=== PATIENT | male | born 1950 | race Caucasian/White ===

== ENCOUNTER 2017-04-03 12:49 | Inpatient (IN) | payer OTHER ==
[~2017-04-03] VITALS: Ht 177.8 cm; Wt 97.5 kg
[2017-04-03 12:51] VITALS: BP 136/73
[2017-04-03] MEDS ORDERED: COUMADIN 5 MG TA5 M1 PO (13:37)
[2017-04-03] MEDS ORDERED: UNICOMPLEX M TA1 TA1 PO (13:37)
[2017-04-03 13:38] LABS: URINE BILIRUBIN NEGATIVE (Negative); URINE BLOOD 3+ (Negative); URINE COLOR YELLOW; URINE GLUCOSE-RANDOM* NEGATIVE (Negative); URINE KETONES NEGATIVE (Negative); URINE LEUKOCYTES-REFLEX NEGATIVE (Negative); URINE PROTEIN (DIPSTICK) 1+ (Negative); URINE SPECIFIC GRAVITY 1.025 (1.003-1.035); URINE UROBILINOGEN 0.2 E.U./dl (0.2-1.0)
[2017-04-03] MEDS ORDERED: LIVALO4 MG PO (13:38)
[2017-04-03 13:44] LABS: CASTS None Seen /LPF (None Seen); CRYSTALS None Seen /LPF (None Seen); SQUAMOUS 0-3 Few /LPF (0-3); URINE RBC 3-10 Few /HPF (0-2)
[2017-04-03 13:45] LABS: URINE WBC-REFLEX None Seen /HPF (0-5)
[2017-04-03 14:00] LABS: HEMATOCRIT 40.6 % (42.0-52.0); HEMOGLOBIN 14.1 gm/dL (14.0-18.0); MCH 33.9 pg (26.0-34.0); MCHC 34.7 g/dL (28.0-37.0); MCV 97.7 fL (80.0-100.0); PLATELET COUNT 146 thou/uL (150-400); RBC 4.16 mil/uL (4.50-6.00); RDW 14.1 % (10.5-14.5); WBC 10.7 thou/uL (4.0-11.0)
[2017-04-03 14:02] LABS: MANUAL DIFF YES
[2017-04-03 14:09] LABS: CALCIUM 8.6 mg/dL (8.5-10.1); CREATININE 1.3 mg/dL (0.7-1.3)
[2017-04-03 14:31] LABS: TOTAL CELL COUNT 100
[2017-04-03 14:32] LABS: ANISOCYTOSIS SLIGHT
[2017-04-03 16:38] VITALS: BP 112/48
[2017-04-03] MEDS ORDERED: BACTRIM DS TAB1 EACH PO (17:16)
[2017-04-03 17:18] VITALS: BP 106/64
[2017-04-03 19:55] VITALS: BP 112/66
[2017-04-04 04:00] VITALS: BP 107/63
[2017-04-04 06:59] LABS: INR 1.5; PROTIME 15.6 Seconds (9.3-11.4)
[2017-04-04 08:28] VITALS: BP 110/61
[2017-04-04 15:45] VITALS: BP 114/71
[2017-04-04 19:56] VITALS: BP 121/58
[2017-04-05 04:23] VITALS: BP 99/53
[2017-04-05 05:59] LABS: INR 1.5; PROTIME 15.7 Seconds (9.3-11.4)
[2017-04-05] MEDS ORDERED: AUGMENTIN 875875 MG PO (08:35)
[2017-04-05 08:51] VITALS: BP 107/69; BP 170/69
[2017-04-05] MEDS ORDERED: FLOMAX0.4 MG PO (09:01)
[2017-04-05 09:40] VITALS: BP 107/69
== END 2017-04-05 10:55 | disposition home or self-care (01) | DRG 872 ==
LOC: ER 12:49 → EROBS 16:16 → 3N 16:16
PROVIDERS: Emergency Medicine; Hospitalist
DX: A41.9 Sepsis, unspecified organism (principal); N39.0 Urinary tract infection, site not specified; N41.9 Inflammatory disease of prostate, unspecified; N40.0 Benign prostatic hyperplasia without lower urinary tract symptoms; I10 Essential (primary) hypertension; Z86.718 Personal history of other venous thrombosis and embolism; Z88.8 Allergy status to other drugs, medicaments and biological substances; Z79.899 Other long term (current) drug therapy
CPT/HCPCS: 10094